=== PATIENT | male | born 1970 | race American Indian/Alaskan Native ===

== ENCOUNTER 2016-08-24 20:16 | Emergency (ER) | payer MEDICAID ==
--- NOTE | 2016-08-24 21:13 | ED PDOC ---
Arrival/HPI - General Chief Complaint: Medical Clearance Time Seen by Provider: 08/24/16 20:45 Historian: Patient - History of Present Illness Narrative History of Present Illness (Text): 08/24/16 21:09 Raffaele Ugalde is a 45 year old male, with a history of glaucoma, presents to the emergency department for weakness. States that he "does not feel like himself" and states he feels like his "body is getting smaller and shrinking." Admits to smoking marijuana earlier today. Denies any headache, dizziness, chest pain, difficulty breathing, nausea, vomiting, diarrhea, or any other complaints at this time. Time/Duration: 1-3 hours Symptom Onset: Gradual Severity Level: Mild Activities at Onset: Light Context: Home Past Medical History - Provider Review Nursing Documentation Reviewed: Yes - Cardiac Hx Cardiac Disorders: No - Pulmonary Hx Respiratory Disorders: No - Neurological Hx Neurological Disorder: No - HEENT Hx HEENT Disorder: Yes Hx Glaucoma: Yes - Renal Hx Renal Disorder: No - Endocrine/Metabolic Hx Endocrine Disorders: No - Hematological/Oncological Hx Blood Disorders: No - Integumentary Hx Dermatological Disorder: No - Musculoskeletal/Rheumatological Hx Musculoskeletal Disorders: No - Gastrointestinal Hx Gastrointestinal Disorders: No - Genitourinary/Gynecological Hx Genitourinary Disorders: No - Psychiatric Hx Psychophysiologic Disorder: No Hx Substance Use: Yes - Surgical History Hx Eye Surgery: Yes Family/Social History - Physician Review Nursing Documentation Reviewed: Yes Family/Social History: No Known Family HX Smoking Status: Current Some Days Smoker Hx Alcohol Use: Yes Frequency of alcohol use: Socially Hx Substance Use: Yes Substance used: CANNABIS Allergies/Home Meds Allergies/Adverse Reactions: Allergies No Known Allergies Allergy (Verified 08/24/16 20:51) Home Medications: Home Meds Medication Instructions Recorded Confirmed Dorzolamide 2%/Timolol 0.5% 1 drop OD DAILY 08/24/16 08/24/16 [Cosopt 2%-0.5% Opht] Latanoprost [Xalatan] 1 drop OD DAILY 08/24/16 08/24/16 Review of Systems - Physician Review All systems were reviewed & negative as marked: Yes - Review of Systems Constitutional: Fatigue. absent: Fevers Respiratory: Normal. absent: SOB, Cough Cardiovascular: Normal. absent: Chest Pain Gastrointestinal: Normal. absent: Abdominal Pain, Diarrhea, Nausea, Vomiting Neurological: Normal. absent: Headache, Dizziness Psychiatric: Normal Physical Exam Vital Signs Reviewed: Yes Vital Signs Pulse Resp BP Pulse Ox 08/24/16 23:00 55 L 16 114/72 98 08/24/16 21:16 57 L 22 127/83 98 Temperature: Afebrile Blood Pressure: Normal Pulse: Regular Respiratory Rate: Normal Appearance: Positive for: Well-Appearing, Non-Toxic, Comfortable Pain Distress: None Mental Status: Positive for: Alert and Oriented X 3 - Systems Exam Head: Present: Atraumatic, Normocephalic Pupils: Present: PERRL Conjunctiva: Present: Normal Respiratory/Chest: Present: Clear to Auscultation, Good Air Exchange. No: Respiratory Distress, Accessory Muscle Use Cardiovascular: Present: Regular Rate and Rhythm, Normal S1, S2. No: Murmurs Upper Extremity: Present: Normal Inspection. No: Cyanosis, Edema Lower Extremity: Present: Normal Inspection. No: Edema Neurological: Present: GCS=15, CN II-XII Intact, Speech Normal, Motor Func Grossly Intact, Normal Sensory Function Skin: Present: Warm, Dry, Normal Color. No: Rashes Psychiatric: Present: Alert, Oriented x 3 Medical Decision Making ED Course and Treatment: 08/24/16 21:14 Impression: A 45 y/o male who presents to the emergency department for weakness and "not feeling like himself." Admits to smoking marijuana earlier today. Plan: -- EKG -- Labs, cardiac enzymes -- Alcohol level -- Drug level -- Urinalysis Progress Notes: - Lab Interpretations Lab Results: 08/24/16 21:30 08/24/16 21:30 Lab Results 08/24/16 21:30: WBC 5.1, RBC 4.79, Hgb 15.5, Hct 44.8, MCV 93.5, MCH 32.4, MCHC 34.6, RDW 14.3, Plt Count 215, MPV 10.9, Gran % 50.6, Lymph % (Auto) 39.3 H, Major % (Auto) 7.7 H, Eos % (Auto) 2.0, Baso % (Auto) 0.4, Gran # 2.56, Lymph # 2.0, Major # 0.4, Eos # 0.1, Baso # 0.02, Sodium 139, Potassium 4.5, Chloride 101 , Carbon Dioxide 31, Anion Gap 12, BUN 20, Creatinine 1.1, Est GFR ( Amer ) > 60, Est GFR (Non-Af Amer) > 60, Random Glucose 92, Calcium 9.8, Phosphorus 3.8, Total Bilirubin 0.5, AST 24, ALT 36, Alkaline Phosphatase 56, Lactate Dehydrogenase 454, Total Creatine Kinase 271 H, CK-MB (CK-2) 0.9, CK-MB (CK-2) % Cancelled, Troponin I < 0.01, Total Protein 7.8, Albumin 4.4, Globulin 3.4, Albumin/Globulin Ratio 1.3, Urine Color Yellow, Urine Appearance Clear, Urine pH 6.0, Ur Specific [place] >= 1.030, Urine Protein Trace H, Urine Glucose (UA) Negative, Urine Ketones Negative, Urine Blood Trace-lysed H, Urine Nitrate Negative, Urine Bilirubin Negative, Urine Urobilinogen 0.2, Ur Leukocyte Esterase Negative, Urine RBC 0 - 2, Urine WBC 0 - 2, Ur Epithelial Cells 0 - 2, Urine Bacteria Few, Urine Opiates Screen Negative, Urine Methadone Screen Negative, Ur Barbiturates Screen Negative, Ur Phencyclidine Scrn Negative, Ur Amphetamines Screen Negative, U Benzodiazepines Scrn Negative, U Oth Cocaine Metabols Negative, U Cannabinoids Screen Positive H, Alcohol, Quantitative < 10 I have reviewed the lab results: Yes - EKG Interpretation Interpreted by ED Physician: Yes Type: 12 lead EKG - Scribe Statement The provider has reviewed the documentation as recorded by the Florian Hernandez Provider Attestation: All medical record entries made by the Florian were at my direction and personally dictated by me. I have reviewed the chart and agree that the record accurately reflects my personal performance of the history, physical exam, medical decision making, and the department course for this patient. I have also personally directed, reviewed, and agree with the discharge instructions and disposition. Disposition/Present on Arrival - Present on Arrival Any Indicators Present on Arrival: No History of DVT/PE: No History of Uncontrolled Diabetes: No Urinary Catheter: No History of Decub. Ulcer: No History Surgical Site Infection Following: None - Disposition Have Diagnosis and Disposition been Completed?: Yes Diagnosis: Adverse effect of cannabis Disposition: HOME/ ROUTINE Disposition Time: 00:15 Condition: GOOD Referrals: Jerry Nava Jr., MD [Primary Care Provider] - Follow up with primary
[2016-08-24 21:16] VITALS: O2SAT 98
[2016-08-24 21:59] LABS: ADD MANUAL DIFF? NO
[2016-08-24 22:15] LABS: BASO # 0.02 K/mm3 (0.0-2.0); BASO % 0.4 % (0.0-3.0); EOS # 0.1 (0.0-0.7); GRAN # 2.56 (1.4-6.5); GRAN % 50.6 % (50.0-68.0); HEMATOCRIT 44.8 % (42.0-52.0); LYMPH % 39.3 % (22.0-35.0); MEAN CELL VOLUME 93.5 fL (80.0-105.0); MEAN CORPUSCULAR HEMOGLOBIN 32.4 pg (25.0-35.0); MEAN CORPUSCULAR HGB CONC 34.6 g/dl (31.0-37.0); MEAN PLATELET VOLUME 10.9 fl (7.0-11.0); MONO # 0.4 (0.1-0.6); MONO % 7.7 % (1.0-6.0); PLATELET COUNT 215 10^3/uL (120.0-450.0); RED CELL DISTRIBUTION WIDTH 14.3 % (11.5-14.5); WHITE BLOOD COUNT 5.1 10^3/ul (4.5-11.0)
[2016-08-24 22:16] LABS: ALB/GLOB RATIO 1.3 (1.1-1.8); ALKALINE PHOSPHATASE 56 U/L (38-133); ALT/SGPT 36 U/L (7-56); AST/SGOT 24 U/L (15-59); BILIRUBIN,TOTAL 0.5 mg/dL (0.2-1.3); BLOOD UREA NITROGEN 20 mg/dL (7-21); CALCIUM 9.8 mg/dL (8.4-10.5); CARBON DIOXIDE 31 mmol/L (21-33); CHLORIDE 101 mmol/L (98-107); GFR AFRICAN-AMERICAN > 60; GLUCOSE,RANDOM 92 mg/dL (70-110); PHOSPHOROUS 3.8 mg/dL (2.5-4.5); POTASSIUM 4.5 mmol/L (3.6-5.0); SODIUM 139 mmol/L (132-148); TOTAL PROTEIN 7.8 g/dL (5.8-8.3)
[2016-08-24 22:34] LABS: TROPONIN I < 0.01 ng/mL
[2016-08-24 22:49] LABS: URINE APPEARANCE CLEAR (CLEAR); URINE BILIRUBIN NEGATIVE (NEGATIVE); URINE BLOOD TRACE-LYSED (NEGATIVE); URINE COLOR YELLOW (YELLOW); URINE GLUCOSE (UA) NEGATIVE (NEGATIVE); URINE KETONE NEGATIVE (NEGATIVE); URINE LEUKOCYTE ESTERASE NEGATIVE Leu/uL (NEGATIVE); URINE PROTEIN TRACE mg/dL (<30 mg/dL); URINE UROBILINOGEN 0.2 E.U./dL (<1 E.U./dL)
[2016-08-24 23:05] LABS: URINE BACTERIA FEW (NEG); URINE EPITHELIAL CELLS 0 - 2 /hpf (0-5); URINE RBC 0 - 2 /hpf (0-2); URINE WBC 0 - 2 /hpf (0-6)
[2016-08-24 23:24] VITALS: BP 114/72; PULSE 55; RESP 16
--- NOTE | 2016-08-25 11:22 | CARD ---
APPROVED REPORT EKG Measurement Heart [id number] <Conclusion> Sinus bradycardia Minimal voltage criteria for LVH, may be normal variant
== END 2016-08-25 00:13 | disposition home or self-care (01) ==
LOC: ED 20:16
DX: R53.1 Weakness (principal); T40.7X5A Adverse effect of cannabis (derivatives), initial encounter; Y92.009 Unspecified place in unspecified non-institutional (private) residence as the place of occurrence of the external cause